=== PATIENT | male | born 1985 | race Two or more races ===

== ENCOUNTER 2018-09-20 19:57 | Emergency (ER) | payer OTHER ==
[~2018-09-20] VITALS: Ht 185.4 cm; Wt 129.3 kg
[2018-09-20] MEDS ORDERED: ONDANSETRON HCL/PF 4 MG/2 ML VIAL IVP ONE ×2 (20:30→22:30)
[2018-09-20] MEDS: IV NS 0.9% 1,000 ML BAG IV ONE ×2 (20:30→20:45)
[2018-09-20] MEDS ORDERED: MORPHINE SULFATE INJ 2 MG/ML DISP.SYRIN IV ONE ×2 (20:30→22:30)
--- NOTE | 2018-09-20 20:34 | NUR ---
PT MIRIAN RA WITH [facility] [employer] WITH PT. PT IS IN [facility] AND WAS RECENTLY D/C'D FROM [facility] AND STATED THAT HE WAS LIGHT HEADED PRIOR TO DISCHARGE FROM [facility]. PT IS AA&O X4. PT IS ON THE MONITOR AND CONTINUOUS PULSE OX. PT REC'D NITRO X1 ( PER THE PT) [facility]. PT'S VSS.
[2018-09-20] MEDS ORDERED: MORPHINE SULFATE INJ 4 MG/ML DISP.SYRIN ONE ×2 (20:39→22:35)
[2018-09-20] MEDS ORDERED: ONDANSETRON HCL/PF 4 MG/2 ML VIAL ONE ×2 (20:39→22:35)
--- NOTE | 2018-09-20 20:50 | NUR ---
CAR DOPPLER US TECH IS AT THE BEDSIDE.
[2018-09-20 20:55] LABS: BASOPHILS # (AUTO) 0.1 /CMM (0.0-0.2); EOSINOPHILS % (AUTO) 1.4 % (0.0-6.0); HEMATOCRIT 39 % (39-51); LYMPHOCYTES # (AUTO) 1.2 /CMM (0.8-4.8); LYMPHOCYTES % (AUTO) 20.7 % (20.0-44.0); MEAN CORPUSCULAR HGB CONC 34 g/dl (31.0-36.0); MEAN CORPUSCULAR VOLUME 92 fL (80-96); MONOCYTES # (AUTO) 0.5 /CMM (0.1-1.30); MONOCYTES % (AUTO) 8.3 % (2.0-12.0); NEUTROPHILS % (AUTO) 68.6 % (43.0-81.0); PLATELET COUNT (AUTO) 213 /CMM (150-450); RED BLOOD CELL COUNT(AUTO) 4.23 MIL/uL (4.5-6.0); WHITE BLOOD COUNT (AUTO) 5.8 K/uL (4.3-11.0)
[2018-09-20 21:02] LABS: CALCIUM, SERUM 8.7 mg/dL (8.5-10.1); CARBON DIOXIDE 25 mmol/L (21-32); CHLORIDE 106 mmol/L (98-107); CREATININE 0.8 mg/dL (0.6-1.3); GLUCOSE 84 mg/dL (74-106); POTASSIUM 3.7 mmol/L (3.5-5.1); SODIUM SERUM 140 mmol/L (136-145); UREA NITROGEN, BLOOD 13 mg/dL (7-18)
[2018-09-20 21:39] LABS: D-DIMER 0.53 mg/L(FEU (0.17-0.50)
--- NOTE | 2018-09-20 21:45 | NUR ---
VENOUS DOPPLER FINISHED.
[2018-09-20] MEDS ORDERED: IOHEXOL-350 100 ML VIAL IV ONE (22:16)
[2018-09-20] MEDS ORDERED: IV NS 0.9% 250 ML IV ONE (22:16)
[2018-09-20] MEDS ORDERED: CT SWABBABLE VALVE TRANS SET 1 EA INFUS.SET MC ONE (22:16)
--- NOTE | 2018-09-20 22:20 | NUR ---
PT LEFT FOR CT VIA [facility]. PT IS C/O CP, RAD[facility] PAC IS AWARE. WILL MEDICATE PT UPON RETURN FROM CT.
--- NOTE | 2018-09-20 22:34 | NUR ---
PT RETURNED FROM CT AND WAS RECONNECTED TO THE MONITOR AND CONTINUOUS PULSE OX.
--- NOTE | 2018-09-21 00:23 | NUR ---
IV removed. Catheter intact and site benign. Pressure and 4x4 applied to site. No bleeding noted. Patient [facility] in stable condition. Written and verbal after care instructions given. Patient verbalizes understanding of instruction. PT REC'D A YOGURT AND JUICE AND IS TOLERATING PO WELL.
[2018-09-21 00:28] VITALS: BP 125/76
--- NOTE | 2018-09-21 00:28 | NUR ---
PT AMBULATED OUT WITH A STEADY GAIT IN HANDCUFFS.
== END 2018-09-21 00:33 ==
LOC: ER 19:58
DX: R07.89 Other chest pain (principal); I10 Essential (primary) hypertension; I25.10 Atherosclerotic heart disease of native coronary artery without angina pectoris; Z95.818 Presence of other cardiac implants and grafts; Z86.718 Personal history of other venous thrombosis and embolism
CPT/HCPCS: 36415; 71045; 71275; 80048; 84484 ×2; 85025; 85378; 85730; 93005 ×2; 93971; 96374; 96375; 96376; 99284; J2270 ×2; J2405 ×2; J7030; J7050; Q9967